=== PATIENT | male | born 1970 | race African-American/Black ===

== ENCOUNTER 2021-02-24 10:35 | Inpatient (IN) | payer OTHER, SELFPAY ==
[~2021-02-24] VITALS: Ht 177.8 cm; Wt 88.9 kg
[2021-02-24 10:35] VITALS: BP_SYST 204
[2021-02-24] MEDS ORDERED: DIPHENHYDRAMINE INJ 50 MG/ML VIAL IVP ONE (11:15)
[2021-02-24] MEDS ORDERED: MORPHINE 2 MG/ML INJ. SYRINGE IVP ONE (11:15)
[2021-02-24 11:53] LABS: INR 1.2 (0.80-1.20); PROTHROMBIN TIME 12.5 SECS (9.5-12.5)
[2021-02-24 11:55] LABS: EOSINOPHILS % (AUTO) 1.5 % (0.0-4.0); HEMATOCRIT 25.4 % (36-54); LYMPHOCYTES # (AUTO) 0.5 K/uL (1.0-5.5); LYMPHOCYTES % (AUTO) 16.9 % (20.5-51.5); MEAN CORPUSCULAR HEMOGLOBIN 31 pg (27-31); MEAN CORPUSCULAR HGB CONC 31 % (32-36); MEAN CORPUSCULAR VOLUME 97 fL (79.0-98.0); MONOCYTES # (AUTO) 0.3 K/uL (0.0-1.0); MONOCYTES % (AUTO) 10.1 % (1.7-9.3); NEUTROPHILS % (AUTO) 70.5 % (40.0-70.0); PLATELET COUNT (AUTO) 123 K/uL (130-430); RED BLOOD CELL COUNT(AUTO) 2.61 MIL/uL (4.2-6.2); RED CELL DISTRIBUTION WIDTH 15.2 % (9.0-15.0); WHITE BLOOD COUNT (AUTO) 2.8 K/uL (4.8-10.8)
[2021-02-24 11:56] LABS: ALANINE AMINOTRANSFERASE 207 U/L (12-78); ALBUMIN 3.3 g/dL (3.4-4.8); AMYLASE 39 U/L (0-100); ASPARTATE AMINOTRANSFERASE 233 U/L (10-37); CALCIUM 8.5 mg/dL (8.4-11.0); CREATININE 2.06 mg/dL (0.55-1.30); LIPASE 8 U/L (73-393); TOTAL BILIRUBIN 0.5 mg/dL (0.0-1.0); UREA NITROGEN, BLOOD 27 mg/dL (8-21)
[2021-02-24 11:58] LABS: BILIRUBIN,URINE NEGATIVE (NEGATIVE); CLARITY/URINE CLEAR (CLEAR); COLOR,URINE YELLOW (YELLOW); GLUCOSE,URINE 3+ (NEGATIVE); KETONES,URINE NEGATIVE (NEGATIVE); LEUKOCYTE ESTERASE ,URINE NEGATIVE (NEGATIVE); NITRITE, URINE NEGATIVE (NEGATIVE); PROTEIN URINE TRACE (NEGATIVE); UROBILINOGEN,URINE 0.2 (0.2-1.0)
[2021-02-24 12:13] LABS: BLOOD, URINE TRACE (NEGATIVE)
[2021-02-24 12:15] LABS: ANION GAP 12 (5-15); CHLORIDE 103 mmol/L (98-107); GFR AFRICAN AMERICAN 44 mL/min (>90); POTASSIUM 4.6 mmol/L (3.5-5.1); SODIUM SERUM 135 mmol/L (136-145)
[2021-02-24 12:23] LABS: GLUCOSE 896 mg/dL (70-99)
[2021-02-24] MEDS ORDERED: MORPHINE 4 MG INJ. 4 MG/ML VIAL IVP ONE (12:30)
[2021-02-24] MEDS ORDERED: cloNIDine HCL 0.1 MG TABLET PO ONE (12:30)
[2021-02-24] MEDS ORDERED: LEVOFLOXACIN IN DEXTROSE 5 % 100 ML IV ONE (12:45)
[2021-02-24 12:48] LABS: RBC,URINE 0-3 /HPF (0-3); WBC,URINE 0-3 /HPF (0-3)
[2021-02-24 12:49] LABS: BACTERIA,URINE RARE /HPF (None Seen); MUCUS,URINE 1+ /LPF (None Seen)
[2021-02-24 12:55] LABS: CKMB RELATIVE INDEX 1.9 (0.0-2.9); CREATINE KINASE MB 7.2 ng/mL (0-3.6)
[2021-02-24 13:18] LABS: C-REACTIVE PROTEIN QUANT < 0.2 mg/dL (0-0.5)
[2021-02-24] MEDS ORDERED: HYDROcodone/ACETAMIN 10-325 MG TAB PO PRN (14:00)
[2021-02-24] MEDS ORDERED: NALOXONE HCL 0.4 MG/ML AMP (NARCAN) IVP PRN ×3 (14:00)
[2021-02-24] MEDS ORDERED: NORMAL SALINE 5 ML DISP.SYRIN IVF SCH (14:00)
[2021-02-24] MEDS ORDERED: ONDANSETRON HCL 4 MG/2 ML VIAL IVP PRN (14:00)
[2021-02-24] MEDS ORDERED: HYDROcodone/ACETAMIN 5-325 MG TAB (NORCO/ VICODIN) PO PRN (14:00)
[2021-02-24] MEDS ORDERED: ACETAMINOPHEN 325 MG TABLET PO PRN ×2 (14:00→15:00)
[2021-02-24] MEDS ORDERED: ISOS120T8 PO (14:05)
[2021-02-24] MEDS ORDERED: PRO40 PO (14:05)
[2021-02-24] MEDS ORDERED: VITD2000 PO (14:05)
[2021-02-24] MEDS ORDERED: METO-442 PO (14:05)
[2021-02-24] MEDS ORDERED: LIPA1CAP23 PO (14:05)
[2021-02-24] MEDS ORDERED: SSNOVOLOG SUBCUT (14:05)
[2021-02-24] MEDS ORDERED: LON10 PO (14:05)
[2021-02-24] MEDS ORDERED: CLOP75TA32 PO (14:05)
[2021-02-24] MEDS ORDERED: FURO-149 PO (14:05)
[2021-02-24] MEDS ORDERED: ASPI-1077 PO (14:05)
[2021-02-24] MEDS ORDERED: LIP40 PO (14:05)
[2021-02-24] MEDS ORDERED: HYDR-4039 PO (14:05)
[2021-02-24] MEDS ORDERED: INSU100V9 SQ (14:05)
[2021-02-24] MEDS ORDERED: SPIR25TA PO (14:05)
[2021-02-24] MEDS: INSULIN REGULAR, HUMAN 100 UNITS/ML, 10 ML VIAL (humuLIN R) SUBCUT PRN ×3 (14:58→21:53)
[2021-02-24] MEDS: MORPHINE 2 MG/ML INJ. SYRINGE IVP PRN ×2 (14:59→21:51)
[2021-02-24] MEDS ORDERED: GLUCOSE (DEXTROSE) ORAL GEL -Adults PO PRN (15:00)
[2021-02-24] MEDS ORDERED: HYDROCHLOROTHIAZIDE 25 MG TABLET (HCTZ) PO ONE (15:00)
[2021-02-24] MEDS ORDERED: FUROSEMIDE 20 MG/2 ML VIAL IVP ONE (15:00)
[2021-02-24] MEDS ORDERED: DEXTROSE 50%-WATER 50 ML DISP.SYRIN IVP PRN (15:00)
[2021-02-24] MEDS ORDERED: D5W 1,000 ML IV PRN (15:00)
[2021-02-24 15:49] VITALS: BP_SYST 200
[2021-02-24] MEDS ORDERED: INSULIN REGULAR, HUMAN 10 UNITS/0.1 ML INJ ONE (16:00)
[2021-02-24 16:22] VITALS: BP_SYST 197
[2021-02-24] MEDS: NORMAL SALINE 5 ML DISP.SYRIN IVF SCH ×2 (16:48→21:09)
[2021-02-24] MEDS: NACL 0.9% 1,000 ML IV SCH ×2 (16:48→18:09)
[2021-02-24] MEDS ORDERED: INSULIN REGULAR, HUMAN 100 UNITS/ML, 10 ML VIAL SUBCUT ONE (17:15)
[2021-02-24] MEDS: cefTRIAXone 1 GM in D5W 50 ML IV SCH (18:00)
[2021-02-24 18:11] LABS: CALCIUM 8.3 mg/dL (8.4-11.0); CREATININE 2.04 mg/dL (0.55-1.30)
[2021-02-24 20:00] VITALS: BP_SYST 208
[2021-02-24] MEDS: cloNIDine HCL 0.1 MG TABLET PO PRN (21:44)
[2021-02-24] MEDS ORDERED: INSULIN GLARGINE 100 UNITS/ML 10 ML VIAL SUBCUT SCH (22:00)
[2021-02-24 22:30] VITALS: BP_SYST 192
[2021-02-24] MEDS ORDERED: LOSARTAN POTASSIUM 50 MG TABLET (COZAAR) PO ONE (22:44)
[2021-02-24] MEDS ORDERED: LABETALOL HCL 100 MG TABLET PO ONE (22:45)
[2021-02-25] VITALS (8 sets, daily range): BP systolic 135–196
[2021-02-25] MEDS ORDERED: amLODIPine BESYLATE 10 MG TABLET PO ONE (00:15)
[2021-02-25] MEDS ORDERED: HYDROmorphone 1 MG/ML INJ. CARTRIDGE IM PRN (01:00)
[2021-02-25] MEDS ORDERED: FLU VACC QS2021-22(6MOS UP)/PF 0.5 ML/SYR SYRINGE I.M. ONE (01:30)
[2021-02-25] MEDS: DIPHENHYDRAMINE INJ 50 MG/ML VIAL IVP PRN ×4 (01:35→22:22)
[2021-02-25] MEDS: HYDROmorphone 1 MG/ML INJ. CARTRIDGE IVP PRN ×4 (01:59→22:21)
[2021-02-25] MEDS: NACL 0.9% 1,000 ML IV SCH (04:07)
[2021-02-25] MEDS: NORMAL SALINE 5 ML DISP.SYRIN IVF SCH ×3 (06:49→21:41)
[2021-02-25] MEDS ORDERED: FUROSEMIDE 20 MG/2 ML VIAL IVP SCH (09:00)
[2021-02-25] MEDS ORDERED: LABETALOL HCL 100 MG TABLET PO SCH (09:00)
[2021-02-25] MEDS ORDERED: HYDROCHLOROTHIAZIDE 25 MG TABLET (HCTZ) PO SCH (09:00)
[2021-02-25 09:03] LABS: BASOPHILS # (AUTO) 0.1 K/uL (0.0-0.2); BASOPHILS % (AUTO) 1.6 % (0.0-2.0); EOSINOPHILS # (AUTO) 0.2 K/uL (0.0-0.4); EOSINOPHILS % (AUTO) 5.3 % (0.0-4.0); HEMATOCRIT 26.8 % (36-54); LYMPHOCYTES # (AUTO) 1.3 K/uL (1.0-5.5); LYMPHOCYTES % (AUTO) 32.4 % (20.5-51.5); MEAN CORPUSCULAR HEMOGLOBIN 31 pg (27-31); MEAN CORPUSCULAR HGB CONC 33 % (32-36); MEAN CORPUSCULAR VOLUME 92 fL (79.0-98.0); MONOCYTES # (AUTO) 0.5 K/uL (0.0-1.0); MONOCYTES % (AUTO) 12.8 % (1.7-9.3); NEUTROPHILS # (AUTO) 1.9 K/uL (1.8-7.7); NEUTROPHILS % (AUTO) 47.9 % (40.0-70.0); PLATELET COUNT (AUTO) 136 K/uL (130-430); RED BLOOD CELL COUNT(AUTO) 2.91 MIL/uL (4.2-6.2)
[2021-02-25 09:19] LABS: ALBUMIN 3.1 g/dL (3.4-4.8); ANION GAP 11 (5-15); CALCIUM 8.3 mg/dL (8.4-11.0); CHLORIDE 109 mmol/L (98-107); CREATININE 1.72 mg/dL (0.55-1.30); GLUCOSE 61 mg/dL (70-99); PHOSPHORUS 3.3 mg/dL (2.7-4.5); POTASSIUM 3.5 mmol/L (3.5-5.1); SODIUM SERUM 141 mmol/L (136-145); TOTAL BILIRUBIN 0.4 mg/dL (0.0-1.0); UREA NITROGEN, BLOOD 23 mg/dL (8-21)
[2021-02-25] MEDS: LEVOFLOXACIN IN DEXTROSE 5 % 100 ML IV SCH (09:20)
[2021-02-25 09:49] LABS: ERYTHROCYTE SEDIMENTATION RATE 15 MM/HR (0-15)
[2021-02-25 10:42] LABS: GFR AFRICAN AMERICAN 55 mL/min (>90)
[2021-02-25 10:43] LABS: ALANINE AMINOTRANSFERASE 144 U/L (12-78); ASPARTATE AMINOTRANSFERASE 78 U/L (10-37); C-REACTIVE PROTEIN QUANT < 0.2 mg/dL (0-0.5)
[2021-02-25] MEDS ORDERED: FUROSEMIDE 40 MG/4 ML VIAL IVP ONE (12:30)
[2021-02-25] MEDS ORDERED: SPIRONOLACTONE 25 MG TABLET (ALDACTONE) PO ONE ×2 (12:30→15:45)
[2021-02-25] MEDS ORDERED: NITROGLYCERIN 1 INCH (GM) OINT. TP ONE (12:30)
[2021-02-25] MEDS: LOSARTAN POTASSIUM 50 MG TABLET (COZAAR) PO SCH ×2 (13:27→22:52)
[2021-02-25] MEDS: LIPASE/PROTEASE/AMYLASE 1 CAP PO SCH ×3 (13:29→17:56)
[2021-02-25] MEDS ORDERED: 0.45% NS 1,000 ML IV ONE (16:30)
[2021-02-25] MEDS ORDERED: MAGNESIUM SULFATE IV ONE (16:30)
[2021-02-25] MEDS ORDERED: POTASSIUM CHLORIDE 60 MEQ in NS 500 ML IV ONE (16:30)
[2021-02-25] MEDS ORDERED: D5W IV ONE (16:30)
[2021-02-25] MEDS: NITROGLYCERIN 1 INCH (GM) OINT. TP SCH (17:56)
[2021-02-25] MEDS: cefTRIAXone 1 GM in D5W 50 ML IV SCH (18:33)
[2021-02-25] MEDS ORDERED: hydrALAZINE HCL 25 MG TABLET PO SCH (21:00)
[2021-02-25] MEDS ORDERED: INSULIN GLARGINE 100 UNITS/ML 10 ML VIAL SUBCUT SCH (21:00)
[2021-02-25] MEDS: CARVEDILOL 6.25 MG TABLET (COREG) PO SCH (21:37)
[2021-02-25] MEDS: INSULIN REGULAR, HUMAN 100 UNITS/ML, 10 ML VIAL (humuLIN R) SUBCUT PRN (22:50)
[2021-02-25] MEDS: FUROSEMIDE 40 MG/4 ML VIAL IVP SCH (22:51)
[2021-02-26] MEDS: NITROGLYCERIN 1 INCH (GM) OINT. TP SCH ×4 (01:31→17:15)
[2021-02-26] MEDS: DIPHENHYDRAMINE INJ 50 MG/ML VIAL IVP PRN ×6 (02:41→23:59)
[2021-02-26] MEDS: HYDROmorphone 1 MG/ML INJ. CARTRIDGE IVP PRN ×7 (02:43→20:03)
[2021-02-26] MEDS: NORMAL SALINE 5 ML DISP.SYRIN IVF SCH ×3 (06:30→22:10)
[2021-02-26 07:53] VITALS: BP_SYST 149
[2021-02-26] MEDS: ASPIRIN 81 MG TAB.CHEW PO SCH ×2 (08:56→11:27)
[2021-02-26] MEDS: LIPASE/PROTEASE/AMYLASE 1 CAP PO SCH ×3 (08:59→18:32)
[2021-02-26] MEDS: CARVEDILOL 6.25 MG TABLET (COREG) PO SCH ×2 (09:00→22:10)
[2021-02-26] MEDS: LOSARTAN POTASSIUM 50 MG TABLET (COZAAR) PO SCH ×2 (09:00→20:01)
[2021-02-26] MEDS: SPIRONOLACTONE 25 MG TABLET (ALDACTONE) PO SCH (09:00)
[2021-02-26] MEDS: LEVOFLOXACIN IN DEXTROSE 5 % 100 ML IV SCH (09:04)
[2021-02-26 11:02] LABS: BASOPHILS # (AUTO) 0.1 K/uL (0.0-0.2); BASOPHILS % (AUTO) 2.3 % (0.0-2.0); EOSINOPHILS # (AUTO) 0.2 K/uL (0.0-0.4); EOSINOPHILS % (AUTO) 5.5 % (0.0-4.0); HEMOGLOBIN 8.8 g/dL (14.0-18.0); LYMPHOCYTES # (AUTO) 0.9 K/uL (1.0-5.5); LYMPHOCYTES % (AUTO) 29.9 % (20.5-51.5); MEAN CORPUSCULAR HEMOGLOBIN 30 pg (27-31); MEAN CORPUSCULAR HGB CONC 34 % (32-36); MEAN CORPUSCULAR VOLUME 90 fL (79.0-98.0); MONOCYTES # (AUTO) 0.4 K/uL (0.0-1.0); MONOCYTES % (AUTO) 13.7 % (1.7-9.3); NEUTROPHILS # (AUTO) 1.5 K/uL (1.8-7.7); NEUTROPHILS % (AUTO) 48.6 % (40.0-70.0); PLATELET COUNT (AUTO) 132 K/uL (130-430); RED BLOOD CELL COUNT(AUTO) 2.89 MIL/uL (4.2-6.2); RED CELL DISTRIBUTION WIDTH 15.2 % (9.0-15.0)
[2021-02-26 11:07] LABS: FERRITIN 129 ng/mL (30-400); FOLATE (FOLIC ACID) >20.0 ng/mL (>3.0); HEPATITIS A AB, IgM Negative (Negative); HEPATITIS B CORE AB, IgM Negative (Negative); HEPATITIS B SURFACE AG Negative (Negative)
[2021-02-26 11:14] LABS: ANION GAP 11 (5-15); CALCIUM 8.1 mg/dL (8.4-11.0); CHLORIDE 109 mmol/L (98-107); CREATININE 1.97 mg/dL (0.55-1.30); GLUCOSE 87 mg/dL (70-99); PHOSPHORUS 4.7 mg/dL (2.7-4.5); POTASSIUM 4.5 mmol/L (3.5-5.1); SODIUM SERUM 141 mmol/L (136-145); THYROID STIMULATING HORMONE 2.33 uIu/mL (0.36-3.74); UREA NITROGEN, BLOOD 27 mg/dL (8-21)
[2021-02-26 11:16] LABS: GFR AFRICAN AMERICAN 47 mL/min (>90)
[2021-02-26] MEDS: ATORVASTATIN 20 MG TABLET PO SCH (11:28)
[2021-02-26] MEDS: hydrALAZINE HCL 25 MG TABLET PO SCH ×2 (11:30→20:02)
[2021-02-26 12:00] VITALS: BP_SYST 165
[2021-02-26 12:02] LABS: ERYTHROCYTE SEDIMENTATION RATE 15 MM/HR (0-15)
[2021-02-26 12:04] LABS: C-REACTIVE PROTEIN QUANT < 0.2 mg/dL (0-0.5)
[2021-02-26] MEDS: FUROSEMIDE 40 MG/4 ML VIAL IVP SCH ×3 (15:24→22:11)
[2021-02-26] MEDS ORDERED: amLODIPine BESYLATE 5 MG TABLET PO ONE (15:30)
[2021-02-26 15:33] VITALS: BP_SYST 174
[2021-02-26] MEDS: amLODIPine BESYLATE 5 MG TABLET PO SCH (15:45)
[2021-02-26 16:00] VITALS: BP_SYST 167
[2021-02-26] MEDS: cefTRIAXone 1 GM in D5W 50 ML IV SCH (16:40)
[2021-02-26] MEDS: NACL 0.9% 1,000 ML IV SCH (18:00)
[2021-02-26 19:54] VITALS: BP_SYST 172
[2021-02-26] MEDS: INSULIN GLARGINE 100 UNITS/ML 10 ML VIAL SUBCUT SCH (21:00)
[2021-02-27] MEDS: HYDROmorphone 1 MG/ML INJ. CARTRIDGE IVP PRN ×6 (00:01→22:18)
[2021-02-27] MEDS: INSULIN REGULAR, HUMAN 100 UNITS/ML, 10 ML VIAL (humuLIN R) SUBCUT PRN ×5 (00:01→21:20)
[2021-02-27] MEDS: NITROGLYCERIN 1 INCH (GM) OINT. TP SCH ×4 (00:07→19:02)
[2021-02-27] MEDS: DIPHENHYDRAMINE INJ 50 MG/ML VIAL IVP PRN ×5 (04:37→22:18)
[2021-02-27] MEDS: FUROSEMIDE 40 MG/4 ML VIAL IVP SCH (06:00)
[2021-02-27] MEDS: NORMAL SALINE 5 ML DISP.SYRIN IVF SCH ×3 (06:18→21:16)
[2021-02-27 08:00] VITALS: BP_SYST 169
[2021-02-27] MEDS ORDERED: hydrALAZINE HCL 25 MG TABLET PO ONE (08:45)
[2021-02-27] MEDS: LEVOFLOXACIN IN DEXTROSE 5 % 100 ML IV SCH (08:54)
[2021-02-27] MEDS: LOSARTAN POTASSIUM 50 MG TABLET (COZAAR) PO SCH ×2 (09:00→21:13)
[2021-02-27] MEDS: amLODIPine BESYLATE 5 MG TABLET PO SCH ×2 (09:00→21:15)
[2021-02-27] MEDS: ATORVASTATIN 20 MG TABLET PO SCH (09:00)
[2021-02-27] MEDS: SPIRONOLACTONE 25 MG TABLET (ALDACTONE) PO SCH (09:02)
[2021-02-27] MEDS: cloNIDine HCL 0.1 MG TABLET PO PRN (09:03)
[2021-02-27] MEDS: LIPASE/PROTEASE/AMYLASE 1 CAP PO SCH ×3 (09:04→19:03)
[2021-02-27] MEDS: NACL 0.9% 1,000 ML IV SCH ×2 (09:05→18:00)
[2021-02-27 10:13] LABS: BASOPHILS % (AUTO) 0.3 % (0.0-2.0); EOSINOPHILS # (AUTO) 0.3 K/uL (0.0-0.4); EOSINOPHILS % (AUTO) 7.3 % (0.0-4.0); HEMATOCRIT 27.8 % (36-54); HEMOGLOBIN 9.4 g/dL (14.0-18.0); LYMPHOCYTES # (AUTO) 1.2 K/uL (1.0-5.5); LYMPHOCYTES % (AUTO) 32.4 % (20.5-51.5); MEAN CORPUSCULAR HEMOGLOBIN 30 pg (27-31); MEAN CORPUSCULAR HGB CONC 34 % (32-36); MEAN CORPUSCULAR VOLUME 90 fL (79.0-98.0); MONOCYTES # (AUTO) 0.4 K/uL (0.0-1.0); MONOCYTES % (AUTO) 11.4 % (1.7-9.3); NEUTROPHILS # (AUTO) 1.9 K/uL (1.8-7.7); NEUTROPHILS % (AUTO) 48.6 % (40.0-70.0); PLATELET COUNT (AUTO) 143 K/uL (130-430); RED BLOOD CELL COUNT(AUTO) 3.09 MIL/uL (4.2-6.2); RED CELL DISTRIBUTION WIDTH 14.4 % (9.0-15.0); WHITE BLOOD COUNT (AUTO) 3.8 K/uL (4.8-10.8)
[2021-02-27 10:31] LABS: ALANINE AMINOTRANSFERASE 156 U/L (12-78); ALBUMIN 3.5 g/dL (3.4-4.8); ANION GAP 8 (5-15); ASPARTATE AMINOTRANSFERASE 129 U/L (10-37); CALCIUM 7.5 mg/dL (8.4-11.0); CHLORIDE 106 mmol/L (98-107); CREATININE 2.09 mg/dL (0.55-1.30); GLUCOSE 177 mg/dL (70-99); PHOSPHORUS 4.1 mg/dL (2.7-4.5); SODIUM SERUM 138 mmol/L (136-145); TOTAL BILIRUBIN 0.5 mg/dL (0.0-1.0); UREA NITROGEN, BLOOD 27 mg/dL (8-21)
[2021-02-27 10:33] LABS: GFR AFRICAN AMERICAN 43 mL/min (>90)
[2021-02-27] MEDS: CARVEDILOL 12.5 MG TABLET (COREG) PO SCH ×2 (10:49→21:14)
[2021-02-27 11:16] LABS: ERYTHROCYTE SEDIMENTATION RATE 14 MM/HR (0-15)
[2021-02-27 11:21] LABS: C-REACTIVE PROTEIN QUANT < 0.2 mg/dL (0-0.5)
[2021-02-27 12:51] VITALS: BP_SYST 160
[2021-02-27] MEDS ORDERED: LABETALOL HCL 100 MG TABLET PO ONE (15:15)
[2021-02-27] MEDS: cefTRIAXone 1 GM in D5W 50 ML IV SCH (16:36)
[2021-02-27 16:56] VITALS: BP_SYST 162
[2021-02-27 21:11] VITALS: BP_SYST 161
[2021-02-27] MEDS: FUROSEMIDE 40 MG TABLET PO SCH (21:14)
[2021-02-27] MEDS: LABETALOL HCL 100 MG TABLET PO SCH (21:15)
[2021-02-27] MEDS: INSULIN GLARGINE 100 UNITS/ML 10 ML VIAL SUBCUT SCH (21:19)
[2021-02-27] MEDS ORDERED: hydrALAZINE HCL 25 MG TABLET PO SCH (22:00)
[2021-02-27 22:13] VITALS: BP_SYST 162
[2021-02-28] VITALS (7 sets, daily range): BP systolic 138–160
[2021-02-28] MEDS: NITROGLYCERIN 1 INCH (GM) OINT. TP SCH ×4 (00:35→17:43)
[2021-02-28] MEDS: DIPHENHYDRAMINE INJ 50 MG/ML VIAL IVP PRN ×4 (03:48→18:34)
[2021-02-28] MEDS: HYDROmorphone 1 MG/ML INJ. CARTRIDGE IVP PRN ×4 (03:49→18:36)
[2021-02-28] MEDS: NORMAL SALINE 5 ML DISP.SYRIN IVF SCH ×3 (06:24→21:59)
[2021-02-28] MEDS: LORazepam 2 MG/ML VIAL IVP PRN ×2 (06:40→16:42)
[2021-02-28] MEDS: LIPASE/PROTEASE/AMYLASE 1 CAP PO SCH ×3 (09:35→17:40)
[2021-02-28] MEDS: LEVOFLOXACIN IN DEXTROSE 5 % 100 ML IV SCH (09:36)
[2021-02-28] MEDS: LABETALOL HCL 100 MG TABLET PO SCH ×3 (09:36→21:52)
[2021-02-28] MEDS: ATORVASTATIN 20 MG TABLET PO SCH (09:37)
[2021-02-28] MEDS: LOSARTAN POTASSIUM 50 MG TABLET (COZAAR) PO SCH ×2 (09:37→21:54)
[2021-02-28] MEDS: FUROSEMIDE 40 MG TABLET PO SCH ×2 (09:38→21:52)
[2021-02-28] MEDS: amLODIPine BESYLATE 5 MG TABLET PO SCH ×2 (09:38→21:53)
[2021-02-28] MEDS: ASPIRIN 81 MG TAB.CHEW PO SCH (09:38)
[2021-02-28] MEDS: SPIRONOLACTONE 25 MG TABLET (ALDACTONE) PO SCH (09:39)
[2021-02-28 10:04] LABS: ALANINE AMINOTRANSFERASE 106 U/L (12-78); ALBUMIN 3.2 g/dL (3.4-4.8); ANION GAP 8 (5-15); ASPARTATE AMINOTRANSFERASE 62 U/L (10-37); CALCIUM 7.2 mg/dL (8.4-11.0); CHLORIDE 106 mmol/L (98-107); CREATININE 2.12 mg/dL (0.55-1.30); GLUCOSE 155 mg/dL (70-99); PHOSPHORUS 4.2 mg/dL (2.7-4.5); POTASSIUM 4.2 mmol/L (3.5-5.1); SODIUM SERUM 137 mmol/L (136-145); TOTAL BILIRUBIN 0.3 mg/dL (0.0-1.0); UREA NITROGEN, BLOOD 32 mg/dL (8-21)
[2021-02-28 10:07] LABS: C-REACTIVE PROTEIN QUANT < 0.2 mg/dL (0-0.5); GFR AFRICAN AMERICAN 43 mL/min (>90)
[2021-02-28 11:02] LABS: EOSINOPHILS # (AUTO) 0.2 K/uL (0.0-0.4); EOSINOPHILS % (AUTO) 7.2 % (0.0-4.0); HEMATOCRIT 24.8 % (36-54); HEMOGLOBIN 8.3 g/dL (14.0-18.0); LYMPHOCYTES # (AUTO) 1.3 K/uL (1.0-5.5); LYMPHOCYTES % (AUTO) 37.5 % (20.5-51.5); MEAN CORPUSCULAR HEMOGLOBIN 31 pg (27-31); MEAN CORPUSCULAR HGB CONC 34 % (32-36); MEAN CORPUSCULAR VOLUME 91 fL (79.0-98.0); MONOCYTES # (AUTO) 0.4 K/uL (0.0-1.0); MONOCYTES % (AUTO) 12.7 % (1.7-9.3); NEUTROPHILS # (AUTO) 1.4 K/uL (1.8-7.7); PLATELET COUNT (AUTO) 115 K/uL (130-430); RED BLOOD CELL COUNT(AUTO) 2.73 MIL/uL (4.2-6.2); RED CELL DISTRIBUTION WIDTH 14.5 % (9.0-15.0); WHITE BLOOD COUNT (AUTO) 3.4 K/uL (4.8-10.8)
[2021-02-28 11:07] LABS: BASOPHILS % (AUTO) 0.5 % (0.0-2.0); NEUTROPHILS % (AUTO) 42.1 % (40.0-70.0)
[2021-02-28] MEDS: INSULIN REGULAR, HUMAN 100 UNITS/ML, 10 ML VIAL (humuLIN R) SUBCUT PRN ×2 (12:11→16:31)
[2021-02-28 13:15] LABS: ERYTHROCYTE SEDIMENTATION RATE 11 MM/HR (0-15)
[2021-02-28] MEDS ORDERED: COMMUNICATION ORDER XX ONE (16:15)
[2021-02-28] MEDS: cefTRIAXone 1 GM in D5W 50 ML IV SCH (16:24)
[2021-02-28] MEDS ORDERED: MAGNESIUM SULFATE IV ONE (17:00)
[2021-02-28] MEDS ORDERED: NACL 0.9% IV ONE (17:00)
[2021-02-28] MEDS: NACL 0.9% 1,000 ML IV SCH (17:45)
[2021-02-28] MEDS: INSULIN GLARGINE 100 UNITS/ML 10 ML VIAL SUBCUT SCH (21:58)
[2021-03-01] VITALS: BP_SYST 150
[2021-03-01] MEDS: NITROGLYCERIN 1 INCH (GM) OINT. TP SCH ×4 (00:01→18:17)
[2021-03-01] MEDS: DIPHENHYDRAMINE INJ 50 MG/ML VIAL IVP PRN ×4 (00:01→18:16)
[2021-03-01] MEDS: HYDROmorphone 1 MG/ML INJ. CARTRIDGE IVP PRN ×4 (00:02→18:25)
[2021-03-01] MEDS: NORMAL SALINE 5 ML DISP.SYRIN IVF SCH ×2 (06:45→13:31)
[2021-03-01 08:00] VITALS: BP_SYST 148
[2021-03-01] MEDS: LIPASE/PROTEASE/AMYLASE 1 CAP PO SCH ×3 (08:37→18:16)
[2021-03-01] MEDS: amLODIPine BESYLATE 5 MG TABLET PO SCH (08:40)
[2021-03-01] MEDS: ATORVASTATIN 20 MG TABLET PO SCH (08:40)
[2021-03-01] MEDS: ASPIRIN 81 MG TAB.CHEW PO SCH (08:41)
[2021-03-01] MEDS: LOSARTAN POTASSIUM 50 MG TABLET (COZAAR) PO SCH (08:41)
[2021-03-01] MEDS: LABETALOL HCL 100 MG TABLET PO SCH ×2 (08:41→15:28)
[2021-03-01] MEDS: FUROSEMIDE 40 MG TABLET PO SCH (08:42)
[2021-03-01] MEDS: LEVOFLOXACIN IN DEXTROSE 5 % 100 ML IV SCH (08:42)
[2021-03-01 10:25] LABS: BASOPHILS % (AUTO) 0.9 % (0.0-2.0); EOSINOPHILS # (AUTO) 0.2 K/uL (0.0-0.4); EOSINOPHILS % (AUTO) 4.5 % (0.0-4.0); HEMATOCRIT 23.6 % (36-54); HEMOGLOBIN 7.9 g/dL (14.0-18.0); LYMPHOCYTES # (AUTO) 0.8 K/uL (1.0-5.5); LYMPHOCYTES % (AUTO) 19.2 % (20.5-51.5); MEAN CORPUSCULAR HEMOGLOBIN 30 pg (27-31); MEAN CORPUSCULAR HGB CONC 34 % (32-36); MEAN CORPUSCULAR VOLUME 91 fL (79.0-98.0); MONOCYTES # (AUTO) 0.4 K/uL (0.0-1.0); MONOCYTES % (AUTO) 10.3 % (1.7-9.3); NEUTROPHILS # (AUTO) 2.7 K/uL (1.8-7.7); NEUTROPHILS % (AUTO) 65.1 % (40.0-70.0); PLATELET COUNT (AUTO) 107 K/uL (130-430); RED BLOOD CELL COUNT(AUTO) 2.61 MIL/uL (4.2-6.2); RED CELL DISTRIBUTION WIDTH 14.5 % (9.0-15.0); WHITE BLOOD COUNT (AUTO) 4.2 K/uL (4.8-10.8)
[2021-03-01 10:44] LABS: ALANINE AMINOTRANSFERASE 80 U/L (12-78); ANION GAP 9 (5-15); ASPARTATE AMINOTRANSFERASE 41 U/L (10-37); CALCIUM 7.2 mg/dL (8.4-11.0); CHLORIDE 107 mmol/L (98-107); CREATININE 2.11 mg/dL (0.55-1.30); GLUCOSE 177 mg/dL (70-99); PHOSPHORUS 4.7 mg/dL (2.7-4.5); POTASSIUM 4.5 mmol/L (3.5-5.1); SODIUM SERUM 137 mmol/L (136-145); TOTAL BILIRUBIN 0.2 mg/dL (0.0-1.0); UREA NITROGEN, BLOOD 34 mg/dL (8-21)
[2021-03-01 10:46] LABS: GFR AFRICAN AMERICAN 43 mL/min (>90)
[2021-03-01 10:47] LABS: C-REACTIVE PROTEIN QUANT < 0.2 mg/dL (0-0.5)
[2021-03-01 11:27] LABS: ERYTHROCYTE SEDIMENTATION RATE 7 MM/HR (0-15)
[2021-03-01] MEDS: INSULIN REGULAR, HUMAN 100 UNITS/ML, 10 ML VIAL (humuLIN R) SUBCUT PRN ×2 (11:44→17:37)
[2021-03-01 12:00] VITALS: BP_SYST 145
[2021-03-01] MEDS ORDERED: AMLO5TAB4 PO (13:38)
[2021-03-01] MEDS ORDERED: LABE100T5 PO (13:38)
[2021-03-01] MEDS ORDERED: FURO-149 PO (13:38)
[2021-03-01] MEDS ORDERED: LOSA50TA3 PO (13:38)
[2021-03-01] MEDS ORDERED: INSU100V9 SQ (13:38)
[2021-03-01] MEDS ORDERED: HYDR-3919 PO (13:38)
[2021-03-01 15:39] VITALS: BP_SYST 146
[2021-03-01 16:00] VITALS: BP_SYST 146
[2021-03-01] MEDS: cefTRIAXone 1 GM in D5W 50 ML IV SCH (17:28)
[2021-03-01] MEDS: NACL 0.9% 1,000 ML IV SCH (18:18)
== END 2021-03-01 20:00 | disposition home or self-care (01) | DRG 720 ==
LOC: SED 10:35 → STU 12:44
PROVIDERS: ADMIT Preventive Medicine Preventive Medicine/Occupational Environmental Medicine; ATTEND Preventive Medicine Preventive Medicine/Occupational Environmental Medicine
DX: A41.9 Sepsis, unspecified organism (principal); J96.21 Acute and chronic respiratory failure with hypoxia; I50.23 Acute on chronic systolic (congestive) heart failure; D61.818 Other pancytopenia; E11.10 Type 2 diabetes mellitus with ketoacidosis without coma; E43 Unspecified severe protein-calorie malnutrition; N17.9 Acute kidney failure, unspecified; D69.6 Thrombocytopenia, unspecified; E83.39 Other disorders of phosphorus metabolism; D63.8 Anemia in other chronic diseases classified elsewhere; J18.9 Pneumonia, unspecified organism; I13.0 Hypertensive heart and chronic kidney disease with heart failure and stage 1 through stage 4 chronic kidney disease, or unspecified chronic kidney disease; E83.51 Hypocalcemia; E11.65 Type 2 diabetes mellitus with hyperglycemia; E78.5 Hyperlipidemia, unspecified; E83.52 Hypercalcemia; E88.09 Other disorders of plasma-protein metabolism, not elsewhere classified; F17.200 Nicotine dependence, unspecified, uncomplicated; K86.1 Other chronic pancreatitis; E87.1 Hypo-osmolality and hyponatremia; G89.29 Other chronic pain; I16.0 Hypertensive urgency; R74.01 Elevation of levels of liver transaminase levels; E11.21 Type 2 diabetes mellitus with diabetic nephropathy; Z20.822 Contact with and (suspected) exposure to COVID-19; I25.10 Atherosclerotic heart disease of native coronary artery without angina pectoris; I31.3 Pericardial effusion (noninflammatory); I25.5 Ischemic cardiomyopathy; K86.81 Exocrine pancreatic insufficiency; K76.89 Other specified diseases of liver; N18.9 Chronic kidney disease, unspecified; E11.22 Type 2 diabetes mellitus with diabetic chronic kidney disease; I25.2 Old myocardial infarction; Z79.82 Long term (current) use of aspirin; Z79.899 Other long term (current) drug therapy; Z79.4 Long term (current) use of insulin; Z86.73 Personal history of transient ischemic attack (TIA), and cerebral infarction without residual deficits; Z86.74 Personal history of sudden cardiac arrest; Z86.79 Personal history of other diseases of the circulatory system; Z95.810 Presence of automatic (implantable) cardiac defibrillator; Z98.61 Coronary angioplasty status; Z68.28 Body mass index [BMI] 28.0-28.9, adult
CPT/HCPCS: 36415; 71045; 76376; 76700-TC; 76770; 80048; 80053; 80074; 81000; 82009; 82150; 82306; 82550; 82553; 82607; 82728; 82746; 82962; 83036; 83605; 83690; 83735; 83880; 84100; 84443; 84484; 85025; 85044; 85379; 85610-TC; 85651-TC; 85730-TC; 86038; 86140; 87040-TC; 87081; 93005; 93306; 93970; 93971; 96374; 96375; 96376; 99285; G0378; J0696; J1170; J1200; J1815; J1940; J1956; J2060; J2270; J3475; J3480; J7030; J7040; J7060; U0003

== ENCOUNTER 2021-05-28 22:11 | Inpatient (IN) | payer OTHER ==
[~2021-05-28] VITALS: Ht 172.7 cm; Wt 81.6 kg
[~2021-05-28 22:11] MED LIST: AMLO5TAB4 PO; ASPI-1077 PO; CELE200C PO; CLOP75TA32 PO; INSU100V9 SQ; LABE100T5 PO; LIP40 PO; LIPA1CAP23 PO; LOSA50TA3 PO; OSCD500 PO; PRO40 PO; SSNOVOLOG SUBCUT; VITD2000 PO
[2021-05-28 22:34] VITALS: BP_SYST 142
--- NOTE | 2021-05-28 23:10 | NUR ---
RECEIVED PT A&O X4, VERBAL, AMBULATORY, WITH C/O ABD'L PAIN, NO SOB/ DISTRESS, PT STATED THAT HE HAD ABD'L PAIN X 6DAYS, N/V X 2DAYS, ABD'L PAIN IS ABOUT 10/10.
--- NOTE | 2021-05-28 23:14 | NUR ---
Placed in room 02 . Placed on playground monitor, blood pressure machine and pulse oximeter. To gown for exam. Side rails up.
--- NOTE | 2021-05-28 23:46 | NUR ---
URINE SPECIMEN SENT TO THE LAB
[2021-05-29] VITALS (13 sets, daily range): BP systolic 145–173
--- NOTE | 2021-05-29 00:26 | NUR ---
ER Dr. Loya at bedside examining patient.
[2021-05-29 00:29] LABS: EOSINOPHILS # (AUTO) 0.1 K/uL (0.0-0.4); EOSINOPHILS % (AUTO) 1.9 % (0.0-4.0); HEMATOCRIT 27.4 % (36-54); HEMOGLOBIN 9.2 g/dL (14.0-18.0); LYMPHOCYTES # (AUTO) 0.9 K/uL (1.0-5.5); LYMPHOCYTES % (AUTO) 20.8 % (20.5-51.5); MEAN CORPUSCULAR HEMOGLOBIN 31 pg (27-31); MEAN CORPUSCULAR HGB CONC 34 % (32-36); MEAN CORPUSCULAR VOLUME 91 fL (79.0-98.0); MONOCYTES # (AUTO) 0.5 K/uL (0.0-1.0); MONOCYTES % (AUTO) 12.5 % (1.7-9.3); NEUTROPHILS # (AUTO) 2.6 K/uL (1.8-7.7); NEUTROPHILS % (AUTO) 63.8 % (40.0-70.0); PLATELET COUNT (AUTO) 150 K/uL (130-430); RED BLOOD CELL COUNT(AUTO) 3.02 MIL/uL (4.2-6.2); RED CELL DISTRIBUTION WIDTH 15.2 % (9.0-15.0); WHITE BLOOD COUNT (AUTO) 4.1 K/uL (4.8-10.8)
[2021-05-29] MEDS ORDERED: MORPHINE 4 MG INJ. 4 MG/ML VIAL IVP ONE (00:30)
[2021-05-29] MEDS ORDERED: DIPHENHYDRAMINE INJ 50 MG/ML VIAL IVP ONE (00:30)
[2021-05-29] MEDS ORDERED: ONDANSETRON HCL 4 MG/2 ML VIAL IVP ONE (00:30)
[2021-05-29 00:43] LABS: CALCIUM 7.3 mg/dL (8.4-11.0); CREATININE 1.82 mg/dL (0.55-1.30); POTASSIUM 3.6 mmol/L (3.5-5.1)
[2021-05-29 00:57] LABS: ALBUMIN 2.6 g/dL (3.4-4.8); TOTAL BILIRUBIN 0.6 mg/dL (0.0-1.0)
[2021-05-29] MEDS ORDERED: NACL 0.9% 1,000 ML IV ONE (01:00)
[2021-05-29 01:09] LABS: BILIRUBIN,URINE NEGATIVE (NEGATIVE); BLOOD, URINE 1+ (NEGATIVE); CLARITY/URINE CLEAR (CLEAR); COLOR,URINE YELLOW (YELLOW); GLUCOSE,URINE 3+ (NEGATIVE); KETONES,URINE NEGATIVE (NEGATIVE); LEUKOCYTE ESTERASE ,URINE NEGATIVE (NEGATIVE); NITRITE, URINE NEGATIVE (NEGATIVE); PROTEIN URINE 2+ (NEGATIVE); UROBILINOGEN,URINE 0.2 (0.2-1.0)
[2021-05-29 01:51] LABS: ACETONE, SERUM NEGATIVE (NEGATIVE)
[2021-05-29 02:13] LABS: BACTERIA,URINE RARE /HPF (None Seen); MUCUS,URINE None Seen /LPF (None Seen); WBC,URINE 0-3 /HPF (0-3)
[2021-05-29] MEDS ORDERED: INSULIN REGULAR, HUMAN 100 UNITS in NS 99 ML IV ONE ×2 (02:45)
[2021-05-29] MEDS ORDERED: POTASSIUM CHLORIDE 20 MEQ in NACL 0.9% 1,000 ML IV ONE (02:45)
[2021-05-29] MEDS ORDERED: POTASSIUM CHLORIDE 20 MEQ in NACL 0.9% 1,000 ML IV SCH (03:15)
[2021-05-29] MEDS ORDERED: INSULIN REGULAR, HUMAN 100 UNITS in NS 99 ML IV PRN ×2 (03:30)
[2021-05-29] MEDS ORDERED: DEXTROSE 50% JECT 50 ML DISP.SYRIN IVP PRN (03:30)
[2021-05-29] MEDS ORDERED: INSULIN REGULAR, HUMAN 10 UNITS/0.1 ML INJ ONE (03:58)
[2021-05-29] MEDS ORDERED: MORPHINE 4 MG INJ. 4 MG/ML VIAL IVP PRN (04:00)
[2021-05-29] MEDS ORDERED: KCL 20 mEq in NS 1000 mL 1,000 ML IV ONE (04:06)
--- NOTE | 2021-05-29 04:28 | NUR ---
Insulin drip initiated per MD orders. Per Dr. Loya order, insulin drip to be infusing at a constant rate of 10 units/hr, do not titrate insulin drip. Accuchecks to be done q 1hr.
[2021-05-29 04:53] LABS: ALANINE AMINOTRANSFERASE 59 U/L (12-78); ALBUMIN 2.5 g/dL (3.4-4.8); ANION GAP 10 (5-15); ASPARTATE AMINOTRANSFERASE 41 U/L (10-37); CALCIUM 7.1 mg/dL (8.4-11.0); CHLORIDE 99 mmol/L (98-107); CREATININE 1.84 mg/dL (0.55-1.30); PHOSPHORUS 3.7 mg/dL (2.7-4.5); POTASSIUM 3.6 mmol/L (3.5-5.1); SODIUM SERUM 130 mmol/L (136-145); TOTAL BILIRUBIN 0.4 mg/dL (0.0-1.0); UREA NITROGEN, BLOOD 25 mg/dL (8-21)
[2021-05-29 04:57] LABS: GFR AFRICAN AMERICAN 50 mL/min (>90)
[2021-05-29 04:58] LABS: GLUCOSE 780 mg/dL (70-99)
--- NOTE | 2021-05-29 04:58 | NUR ---
Critical lab reporting - Glucose from blood draw is 780. notified
[2021-05-29 05:04] LABS: ACETONE, SERUM NEGATIVE (NEGATIVE)
[2021-05-29] MEDS ORDERED: NALOXONE HCL 0.4 MG/ML AMP (NARCAN) IVP PRN (05:30)
[2021-05-29] MEDS: HYDROmorphone 1 MG/ML INJ. CARTRIDGE IVP PRN ×5 (05:41→23:02)
--- NOTE | 2021-05-29 07:35 | NUR ---
REPORT RECEIVED FROM AM ICU NURSE. PT AWAKE, ALERT, ORIENTED X3. REPORTS PAIN 5/10 AT THIS TIME TO EPIGASTRIC AREA. PT RECEIVED DILAUDID FO CHRONIC PAIN DURING AUTHORIZATION MANAGER. NOTED PT ON IV DRIP REGULAR INSULIN VIA PUMP AT 10 UNITS/HR, BLOOD SUGAR CHECKED-511MG/DL.. DR RUIZ PAGED AND NOTIFIED OF FINDINGS, REPORTS TO CONT DRIP AT 10 UNITS/HR. WILL CONT TO MONITOR CLOSELY.
[2021-05-29 09:21] LABS: BASOPHILS % (AUTO) 1.1 % (0.0-2.0); EOSINOPHILS # (AUTO) 0.2 K/uL (0.0-0.4); EOSINOPHILS % (AUTO) 4.7 % (0.0-4.0); HEMATOCRIT 25.7 % (36-54); HEMOGLOBIN 8.7 g/dL (14.0-18.0); LYMPHOCYTES # (AUTO) 0.9 K/uL (1.0-5.5); LYMPHOCYTES % (AUTO) 23.2 % (20.5-51.5); MEAN CORPUSCULAR HEMOGLOBIN 30 pg (27-31); MEAN CORPUSCULAR HGB CONC 34 % (32-36); MEAN CORPUSCULAR VOLUME 90 fL (79.0-98.0); MONOCYTES # (AUTO) 0.5 K/uL (0.0-1.0); MONOCYTES % (AUTO) 12.3 % (1.7-9.3); NEUTROPHILS # (AUTO) 2.2 K/uL (1.8-7.7); NEUTROPHILS % (AUTO) 58.7 % (40.0-70.0); PLATELET COUNT (AUTO) 131 K/uL (130-430); RED BLOOD CELL COUNT(AUTO) 2.86 MIL/uL (4.2-6.2); RED CELL DISTRIBUTION WIDTH 15.1 % (9.0-15.0); WHITE BLOOD COUNT (AUTO) 3.8 K/uL (4.8-10.8)
--- NOTE | 2021-05-29 09:28 | NUR ---
AL -SAYED AT BEDSIDE, UPDATED ON STATUS, LABS, AND VITALS. PER DR LEWIS, STATES TO DECREASE INSULIN DRIP TO 4 UNITS/HR ONCE BS IS DOWN TO 250MG/DL.
[2021-05-29 09:29] LABS: CALCIUM 7.3 mg/dL (8.4-11.0); CREATININE 1.71 mg/dL (0.55-1.30); POTASSIUM 3.3 mmol/L (3.5-5.1)
--- NOTE | 2021-05-29 09:35 | NUR ---
Patient will be admitted to care of DR RUIZ. Admitted to unit. Will go to room . Belongings list completed. Complete and up to date summary report printed. SBAR report to be given at bedside with opportunity for questions.
--- NOTE | 2021-05-29 10:00 | NUR ---
Opening Received report from NEWSPAPER DELIVERY DRIVER using SBAR format. Pt resting comfortably, no signs of immediate distress. Bed locked in lowest position. Pt ambulated from [facility] to ICU bed, steady gait. All safety checks have been completed.
[2021-05-29] MEDS ORDERED: DIPHENHYDRAMINE HCL 12.5 MG/5 ML UDC PO PRN (10:30)
[2021-05-29] MEDS ORDERED: DIPHENHYDRAMINE HCL 25 MG CAPSULE ONE (10:39)
[2021-05-29] MEDS ORDERED: LOSARTAN POTASSIUM 50 MG TABLET (COZAAR) PO ONE (11:15)
[2021-05-29] MEDS ORDERED: ATORVASTATIN 20 MG TABLET PO ONE (11:15)
[2021-05-29] MEDS ORDERED: LABETALOL HCL 100 MG TABLET PO ONE (11:15)
[2021-05-29] MEDS ORDERED: CHOLECALCIFEROL (VITAMIN D3) 2,000 UNIT TABLET PO ONE (11:15)
[2021-05-29] MEDS ORDERED: POTASSIUM CHLORIDE 20 MEQ TAB.PRT.SR PO ONE (11:15)
[2021-05-29] MEDS ORDERED: CLOPIDOGREL BISULFATE 75 MG TABLET PO ONE (11:15)
[2021-05-29] MEDS ORDERED: PANTOPRAZOLE SODIUM 40 MG TAB PO ONE (11:15)
[2021-05-29] MEDS ORDERED: CALCIUM CARBONATE/VITAMIN D3 1 TAB TABLET PO ONE (11:15)
[2021-05-29] MEDS ORDERED: ASPIRIN 81 MG TAB.CHEW PO ONE (11:15)
[2021-05-29] MEDS ORDERED: amLODIPine BESYLATE 5 MG TABLET PO ONE (11:15)
--- NOTE | 2021-05-29 12:20 | NUR ---
Most recent blood sugar is 98. Dr Lynn was notified. Insulin pump to be turned off from this point forward. Dr. Lynn is okay with pt downgrade to tele when primary clears him.
--- NOTE | 2021-05-29 12:45 | NUR ---
Pt refused lab draw after bar assistant's first attempt.
[2021-05-29] MEDS: POTASSIUM CHLORIDE 20 MEQ in NACL 0.9% 1,000 ML IV SCH (15:04)
[2021-05-29] MEDS: LABETALOL HCL 100 MG TABLET PO SCH ×2 (15:06→21:02)
[2021-05-29] MEDS: CELECOXIB 200 MG CAPSULE PO SCH (20:55)
[2021-05-29] MEDS: LOSARTAN POTASSIUM 50 MG TABLET (COZAAR) PO SCH (20:57)
[2021-05-29] MEDS: amLODIPine BESYLATE 5 MG TABLET PO SCH (21:01)
[2021-05-29] MEDS: INSULIN GLARGINE 100 UNITS/ML 10 ML VIAL SUBCUT SCH (21:03)
[2021-05-29] MEDS: INSULIN LISPRO SLIDING SCALE 100 UNITS/ML VIAL (humaLOG) SUBCUT PRN (21:05)
--- NOTE | 2021-05-29 22:31 | NUR ---
ALL CARES DONE MEDS GIVEN BSL-248 COVERAGE GIVEN, VSS,AFEBRILE. 2144 REFUSED BLOOD DRAW. 2149 T/F TO MST REPORT GIVEN TO JODI IZQUIERDO
[2021-05-30] VITALS: BP_SYST 136
[2021-05-30] MEDS: POTASSIUM CHLORIDE 20 MEQ in NACL 0.9% 1,000 ML IV SCH ×3 (00:08→20:27)
--- NOTE | 2021-05-30 03:00 | NUR ---
Pain Complaining of abdominal pain no nausea no vomiting , pain medication given tolerating po well , safety /fall precaution initiated.
[2021-05-30] MEDS: HYDROmorphone 1 MG/ML INJ. CARTRIDGE IVP PRN ×5 (03:05→20:32)
[2021-05-30] MEDS: INSULIN LISPRO SLIDING SCALE 100 UNITS/ML VIAL (humaLOG) SUBCUT PRN ×2 (06:16→12:07)
[2021-05-30 07:40] LABS: CALCIUM 7.3 mg/dL (8.4-11.0); CREATININE 1.93 mg/dL (0.55-1.30); POTASSIUM 4.2 mmol/L (3.5-5.1)
--- NOTE | 2021-05-30 07:50 | NUR ---
OPENING NOTE Patient awake and sitting at bedside eating breakfast, AxO x4. States that his pain has dropped to a 4 since his last pain medication but is slowly increasing again. No signs of respiratory distress on room air. IV site is clean, dry, intact and patent running prescribed fluids. Denies any nausea at this time. Safety checks made and call light left within reach.
[2021-05-30 08:00] VITALS: BP_SYST 139
[2021-05-30 08:01] LABS: EOSINOPHILS % (AUTO) 7.7 % (0.0-4.0); HEMATOCRIT 26.1 % (36-54); HEMOGLOBIN 8.8 g/dL (14.0-18.0); LYMPHOCYTES % (AUTO) 29.3 % (20.5-51.5); MEAN CORPUSCULAR HEMOGLOBIN 30 pg (27-31); MEAN CORPUSCULAR HGB CONC 34 % (32-36); MEAN CORPUSCULAR VOLUME 90 fL (79.0-98.0); MONOCYTES # (AUTO) 0.3 K/uL (0.0-1.0); MONOCYTES % (AUTO) 8.3 % (1.7-9.3); PLATELET COUNT (AUTO) 150 K/uL (130-430); RED CELL DISTRIBUTION WIDTH 14.9 % (9.0-15.0); WHITE BLOOD COUNT (AUTO) 3.3 K/uL (4.8-10.8)
[2021-05-30 08:32] LABS: TOTAL IRON BIND. CAPACITY 226 ug/dL (250-450)
[2021-05-30] MEDS: CELECOXIB 200 MG CAPSULE PO SCH ×2 (08:56→20:25)
[2021-05-30] MEDS: PANTOPRAZOLE SODIUM 40 MG TAB PO SCH (08:56)
[2021-05-30] MEDS: LABETALOL HCL 100 MG TABLET PO SCH ×3 (08:57→20:27)
[2021-05-30] MEDS: ATORVASTATIN 20 MG TABLET PO SCH (08:57)
[2021-05-30] MEDS: amLODIPine BESYLATE 5 MG TABLET PO SCH ×2 (08:58→20:28)
[2021-05-30] MEDS: CLOPIDOGREL BISULFATE 75 MG TABLET PO SCH (08:58)
[2021-05-30] MEDS: CHOLECALCIFEROL (VITAMIN D3) 2,000 UNIT TABLET PO SCH (08:58)
[2021-05-30] MEDS: ASPIRIN 81 MG TAB.CHEW PO SCH (08:59)
[2021-05-30] MEDS: CALCIUM CARBONATE/VITAMIN D3 1 TAB TABLET PO SCH (08:59)
[2021-05-30] MEDS: LOSARTAN POTASSIUM 50 MG TABLET (COZAAR) PO SCH ×2 (08:59→20:28)
[2021-05-30] MEDS: INSULIN GLARGINE 100 UNITS/ML 10 ML VIAL SUBCUT SCH ×2 (09:05→20:47)
[2021-05-30 09:16] LABS: NEUTROPHILS % (AUTO) 54.7 % (40.0-70.0)
[2021-05-30 09:17] LABS: EOSINOPHILS # (AUTO) 0.2 K/uL (0.0-0.4); NEUTROPHILS # (AUTO) 1.8 K/uL (1.8-7.7)
--- NOTE | 2021-05-30 10:50 | NUR ---
PAIN Patient complaining of abdominal pain, states that it is at an 8. Denies nausea at this time. Informed patient that he would be able to receive pain medication at 1109, patient verbalized understanding. Communicated with RN to administer IVP medication at 1109.
[2021-05-30 12:09] LABS: POTASSIUM 4.6 mmol/L (3.5-5.1); SODIUM SERUM 130 mmol/L (136-145)
[2021-05-30 12:10] LABS: ANION GAP 10 (5-15); CALCIUM 7.1 mg/dL (8.4-11.0); CHLORIDE 109 mmol/L (98-107); GLUCOSE 223 mg/dL (70-99)
[2021-05-30 12:11] LABS: UREA NITROGEN, BLOOD 28 mg/dL (8-21)
[2021-05-30 12:28] VITALS: BP_SYST 149
--- NOTE | 2021-05-30 15:00 | NUR ---
ROUNDS Patient complaining of abdominal pain. Tender to the touch. No nausea or vomiting. States that pain is 8/10.
[2021-05-30 16:00] VITALS: BP_SYST 140
[2021-05-30 17:15] LABS: CALCIUM 7.2 mg/dL (8.4-11.0); CREATININE 1.95 mg/dL (0.55-1.30); POTASSIUM 4.7 mmol/L (3.5-5.1)
--- NOTE | 2021-05-30 18:49 | NUR ---
CLOSING NOTE Patient in bed resting, AxO x4. No sign of respiratory distress on room air, patient states that pain is manageable at this time (/). Pain is in the abdomen, denies nausea or vomiting. IV site is clean, dry, intact, and patent. All needs met, safety checks made and call light within reach.
[2021-05-30 20:00] VITALS: BP_SYST 132
--- NOTE | 2021-05-30 20:30 | NUR ---
Received pt up in bed in stable cond. Verbally responsive and able to make needs known. Breathing adequately on RA. No signs of acute distress. IVF running as ordered and tolerating well. IV site to L jugular remains patent and free from signs of infiltration. Denies any pain to site. Call light within reach.
[2021-05-30 21:19] LABS: CALCIUM 7.2 mg/dL (8.4-11.0); CREATININE 1.88 mg/dL (0.55-1.30); POTASSIUM 4.7 mmol/L (3.5-5.1)
[2021-05-31] MEDS: HYDROmorphone 1 MG/ML INJ. CARTRIDGE IVP PRN ×6 (00:41→21:33)
[2021-05-31 00:50] VITALS: BP_SYST 137
[2021-05-31 04:00] VITALS: BP_SYST 134
[2021-05-31] MEDS: POTASSIUM CHLORIDE 20 MEQ in NACL 0.9% 1,000 ML IV SCH ×2 (05:00→14:47)
--- NOTE | 2021-05-31 06:10 | NUR ---
Accu check performed and received BS level of 45. Pt is alert/orientated x4 at this time. Appears without any signs of hypoglycemia. Skin warm/dry. States he feels "fine" and continued using his cell phone. Offered OJ but pt refused and requested for apple juice instead. Snack/drink provided immediately and remained at bedside for any changes.
--- NOTE | 2021-05-31 06:48 | NUR ---
Accu check reassessed and obtained BS reading of 83 at this time. Pt states he feels "fine" still and denies any symptoms related to hypoglycemia. Endorsed to AM to monitor for any changes.
[2021-05-31 07:06] LABS: FOLATE (FOLIC ACID) 15.3 ng/mL (>3.0)
--- NOTE | 2021-05-31 07:50 | NUR ---
Initial Note Patient awake, alert, and oriented x 4. Reports 6/10 pain; tolerable for patient at this time. No distress. No signs or symptoms of hypoglycemia. Call light in reach and bed in lowest position. Will continue to monitor.
[2021-05-31 08:12] VITALS: BP_SYST 142
[2021-05-31] MEDS: CELECOXIB 200 MG CAPSULE PO SCH ×2 (08:36→22:09)
[2021-05-31] MEDS: CALCIUM CARBONATE/VITAMIN D3 1 TAB TABLET PO SCH (08:36)
[2021-05-31] MEDS: LABETALOL HCL 100 MG TABLET PO SCH ×3 (08:36→22:11)
[2021-05-31] MEDS: CLOPIDOGREL BISULFATE 75 MG TABLET PO SCH (08:37)
[2021-05-31] MEDS: LOSARTAN POTASSIUM 50 MG TABLET (COZAAR) PO SCH ×2 (08:37→22:11)
[2021-05-31] MEDS: CHOLECALCIFEROL (VITAMIN D3) 2,000 UNIT TABLET PO SCH (08:37)
[2021-05-31] MEDS: ATORVASTATIN 20 MG TABLET PO SCH (08:37)
[2021-05-31] MEDS: ASPIRIN 81 MG TAB.CHEW PO SCH (08:37)
[2021-05-31] MEDS: PANTOPRAZOLE SODIUM 40 MG TAB PO SCH (08:38)
[2021-05-31] MEDS: amLODIPine BESYLATE 5 MG TABLET PO SCH ×2 (08:38→22:10)
[2021-05-31] MEDS: INSULIN GLARGINE 100 UNITS/ML 10 ML VIAL SUBCUT SCH ×2 (09:00→22:20)
[2021-05-31 12:00] VITALS: BP_SYST 138
--- NOTE | 2021-05-31 13:47 | NUR ---
Notes Patient resting in bed, pain is controlled at 5/10 pain per patient. No distress. Patient no longer refusing blood draw - notified lab. Call light in reach and bed in lowest position. Encouraged to call.
[2021-05-31 14:35] LABS: CALCIUM 7.2 mg/dL (8.4-11.0); CREATININE 1.81 mg/dL (0.55-1.30); POTASSIUM 4.6 mmol/L (3.5-5.1)
[2021-05-31 16:00] VITALS: BP_SYST 126
--- NOTE | 2021-05-31 17:42 | NUR ---
Dietitian Recommendations * [facility]-75 gm diet * Low-glycemic snacks in-between meals BID HEATHER, LUNA Please refer to Nutrition Assessment for details. Addendum: 05/31/21 at [address] Amended: Links added.
--- NOTE | 2021-05-31 19:15 | NUR ---
OPENING NOTES Patient resting in bed - no s/s pain or distress noted. Respirations even and unlabored - head of bed elevated. IV site patent - no s/s redness, infection, or infiltration. Bed locked and in lowest position. Call light within reach.
--- NOTE | 2021-05-31 19:20 | NUR ---
Closing Note Patient resting in bed, pain is controlled. No distress. Safety precautions in place throughout shift. Endorsed to night nurse.
[2021-05-31 20:28] LABS: CALCIUM 7.1 mg/dL (8.4-11.0); CREATININE 1.75 mg/dL (0.55-1.30); POTASSIUM 4.8 mmol/L (3.5-5.1)
--- NOTE | 2021-05-31 21:15 | NUR ---
IV FELL OUT AFTER ADMINISTRATION OF DILAUDID 1MG IV REJ FELL OUT + INFILTRATED. WILL TRY INSERTION OF IV.
[2021-05-31] MEDS: INSULIN LISPRO SLIDING SCALE 100 UNITS/ML VIAL (humaLOG) SUBCUT PRN (22:17)
[2021-06-01] VITALS: BP_SYST 129
--- NOTE | 2021-06-01 00:26 | NUR ---
PAGED DR. RUIZ FOR CENTRAL LINE RN THEA TRIED TWICE FOR IV, CHARGE NURSE KIMBERLEY TRIED AT LEAST THREE TIMES, NOT SUCCESSFUL. PAGED DR RUIZ FOR APPROVAL OF CENTRAL LINE PLACEMENT. DR RUIZ STATES PATIENT GOING HOME TOMORROW. NO NEED FOR CENTRAL LINE. STATES DILAUDID CAN BE GIVEN INTRAMUSCULARLY.
[2021-06-01] MEDS: POTASSIUM CHLORIDE 20 MEQ in NACL 0.9% 1,000 ML IV SCH ×3 (03:00→23:12)
--- NOTE | 2021-06-01 05:37 | NUR ---
OF THIS TIME 5 REGISTERED NURSES ATTEMPTED INSERTION OF IV. Addendum: 06/01/21 at 0538 by Ronald Valdez RN EACH NURSE HAD TRIED THROUGHOUT SHIFT - NOT ALL AT ONCE
--- NOTE | 2021-06-01 05:40 | NUR ---
IV INSERTED R WRIST 22G
[2021-06-01] MEDS: HYDROmorphone 1 MG/ML INJ. CARTRIDGE IVP PRN ×5 (05:44→22:41)
--- NOTE | 2021-06-01 07:30 | NUR ---
Initial Note Patient awake, alert, and oriented x 4. Blood sugar 71, will hold Lantus and notify MD. Reports pain controlled at this time, no distress. Call light and bedside table in reach, encouraged to call.
[2021-06-01] MEDS: PANTOPRAZOLE SODIUM 40 MG TAB PO SCH (08:07)
[2021-06-01] MEDS: ASPIRIN 81 MG TAB.CHEW PO SCH (08:07)
[2021-06-01] MEDS: CALCIUM CARBONATE/VITAMIN D3 1 TAB TABLET PO SCH (08:07)
[2021-06-01] MEDS: ATORVASTATIN 20 MG TABLET PO SCH (08:07)
[2021-06-01] MEDS: CELECOXIB 200 MG CAPSULE PO SCH ×2 (08:09→20:12)
[2021-06-01] MEDS: CLOPIDOGREL BISULFATE 75 MG TABLET PO SCH (08:09)
[2021-06-01] MEDS: INSULIN GLARGINE 100 UNITS/ML 10 ML VIAL SUBCUT SCH ×2 (08:10→20:21)
[2021-06-01] MEDS: CHOLECALCIFEROL (VITAMIN D3) 2,000 UNIT TABLET PO SCH (08:10)
[2021-06-01] MEDS: LABETALOL HCL 100 MG TABLET PO SCH ×3 (08:13→20:14)
[2021-06-01] MEDS: LOSARTAN POTASSIUM 50 MG TABLET (COZAAR) PO SCH ×2 (08:14→20:14)
[2021-06-01] MEDS: amLODIPine BESYLATE 5 MG TABLET PO SCH ×2 (08:14→20:13)
[2021-06-01 08:24] VITALS: BP_SYST 172
--- NOTE | 2021-06-01 10:41 | NUR ---
Patient refusing IVF Noted pitting edema 1+ to right arm. Patient refusing fluids due to right arm swelling and reported diagnosis of CHF. IV site assessed, no signs of infiltration or phlebitis. Patient denies pain at site. Will continue to monitor and educate regarding fluid intake and risk for dehydration. Addendum: 06/01/21 at 1857 by Heidy Naylor RN MD quiroga
--- NOTE | 2021-06-01 12:00 | NUR ---
Notes Patient resting in bed. Denies pain, no distress. Bed locked in lowest position. Call light in reach, encouraged to call.
[2021-06-01 12:07] VITALS: BP_SYST 150
--- NOTE | 2021-06-01 16:18 | NUR ---
Notes Patient asleep, wakes with light verbal stimuli. Pain is controlled, no distress. Safety precautions in place. Encouraged to call as needed.
[2021-06-01 16:26] VITALS: BP_SYST 174
[2021-06-01] MEDS ORDERED: cloNIDine HCL 0.1 MG TABLET ONE (16:39)
[2021-06-01] MEDS: INSULIN LISPRO SLIDING SCALE 100 UNITS/ML VIAL (humaLOG) SUBCUT PRN ×2 (16:40→20:24)
[2021-06-01] MEDS ORDERED: cloNIDine HCL 0.1 MG TABLET PO PRN (16:45)
--- NOTE | 2021-06-01 18:54 | NUR ---
Closing Note Patient resting in bed, pain is controlled with Dilaudid 1 mg Q 4 H. No distress. No signs or symptoms of hypo- or hyper-glycemia. Venous doppler ordered for right upper extremity edema. Safety precautions in place throughout shift. Bed locked in lowest position. Will endorse to night nurse.
--- NOTE | 2021-06-01 19:38 | NUR ---
Spoke w/ Dr Armenta informed him of venous doppler results, ordered 10mg eliquis BID starting now
[2021-06-01 20:00] VITALS: BP_SYST 145
[2021-06-01] MEDS: APIXABAN 2.5 MG TABLET PO SCH (20:12)
[2021-06-02] VITALS: BP_SYST 136
--- NOTE | 2021-06-02 04:23 | NUR ---
Third call for Dr. Maria s/w Kylah.
--- NOTE | 2021-06-02 04:25 | NUR ---
Spoke w/ Dr Armenta pt requesting IV dilaudid, but IV site is in the R arm where the blood clot is. Ordered to give IM and ordered midline placement
[2021-06-02] MEDS ORDERED: HYDROmorphone 1 MG/ML INJ. CARTRIDGE IM PRN (04:30)
[2021-06-02 08:00] LABS: BASOPHILS % (AUTO) 1.1 % (0.0-2.0); EOSINOPHILS # (AUTO) 0.3 K/uL (0.0-0.4); EOSINOPHILS % (AUTO) 7.1 % (0.0-4.0); HEMOGLOBIN 8.5 g/dL (14.0-18.0); LYMPHOCYTES # (AUTO) 0.9 K/uL (1.0-5.5); LYMPHOCYTES % (AUTO) 23.3 % (20.5-51.5); MEAN CORPUSCULAR HEMOGLOBIN 30 pg (27-31); MEAN CORPUSCULAR HGB CONC 33 % (32-36); MEAN CORPUSCULAR VOLUME 92 fL (79.0-98.0); MONOCYTES # (AUTO) 0.5 K/uL (0.0-1.0); MONOCYTES % (AUTO) 12.1 % (1.7-9.3); NEUTROPHILS # (AUTO) 2.3 K/uL (1.8-7.7); NEUTROPHILS % (AUTO) 56.4 % (40.0-70.0); PLATELET COUNT (AUTO) 143 K/uL (130-430); RED BLOOD CELL COUNT(AUTO) 2.83 MIL/uL (4.2-6.2); RED CELL DISTRIBUTION WIDTH 15.3 % (9.0-15.0); WHITE BLOOD COUNT (AUTO) 4.1 K/uL (4.8-10.8)
[2021-06-02 08:04] VITALS: BP_SYST 171
[2021-06-02 08:31] LABS: ALBUMIN 2.6 g/dL (3.4-4.8); CALCIUM 7.6 mg/dL (8.4-11.0); CREATININE 1.67 mg/dL (0.55-1.30); POTASSIUM 4.4 mmol/L (3.5-5.1); TOTAL BILIRUBIN 0.3 mg/dL (0.0-1.0)
[2021-06-02] MEDS: CELECOXIB 200 MG CAPSULE PO SCH ×2 (08:43→21:25)
[2021-06-02] MEDS: ASPIRIN 81 MG TAB.CHEW PO SCH (08:43)
[2021-06-02] MEDS: CHOLECALCIFEROL (VITAMIN D3) 2,000 UNIT TABLET PO SCH (08:44)
[2021-06-02] MEDS: ATORVASTATIN 20 MG TABLET PO SCH (08:44)
[2021-06-02] MEDS: CALCIUM CARBONATE/VITAMIN D3 1 TAB TABLET PO SCH (08:44)
[2021-06-02] MEDS: PANTOPRAZOLE SODIUM 40 MG TAB PO SCH (08:44)
[2021-06-02] MEDS: CLOPIDOGREL BISULFATE 75 MG TABLET PO SCH (08:44)
[2021-06-02] MEDS: amLODIPine BESYLATE 5 MG TABLET PO SCH ×2 (08:45→21:24)
[2021-06-02] MEDS: LOSARTAN POTASSIUM 50 MG TABLET (COZAAR) PO SCH ×2 (08:46→21:24)
[2021-06-02] MEDS: LABETALOL HCL 100 MG TABLET PO SCH ×3 (08:46→21:25)
[2021-06-02] MEDS: APIXABAN 2.5 MG TABLET PO SCH ×2 (08:52→21:26)
[2021-06-02] MEDS: INSULIN GLARGINE 100 UNITS/ML 10 ML VIAL SUBCUT SCH ×2 (08:59→22:46)
[2021-06-02] MEDS: POTASSIUM CHLORIDE 20 MEQ in NACL 0.9% 1,000 ML IV SCH ×2 (08:59→21:35)
[2021-06-02] MEDS: INSULIN LISPRO SLIDING SCALE 100 UNITS/ML VIAL (humaLOG) SUBCUT PRN ×2 (12:19→22:44)
[2021-06-02 12:56] VITALS: BP_SYST 159
--- NOTE | 2021-06-02 15:07 | NUR ---
dr cabrera sayed said pt is okay to go home on his stand-point and pt can go home with the insuling he will order this time.
[2021-06-02 16:57] VITALS: BP_SYST 155
[2021-06-02] MEDS ORDERED: INSULIN Lispro 100 UNITS/ML VIAL (humaLOG) SUBCUT SCH (17:00)
[2021-06-02] MEDS: INSULIN Lispro 100 UNITS/ML VIAL (humaLOG) SUBCUT SCH (17:37)
[2021-06-02] MEDS: HYDROmorphone 1 MG/ML INJ. CARTRIDGE IVP PRN ×2 (17:38→21:43)
[2021-06-02 21:21] VITALS: BP_SYST 176
[2021-06-03] VITALS: BP_SYST 155
[2021-06-03] MEDS: HYDROmorphone 1 MG/ML INJ. CARTRIDGE IVP PRN ×4 (01:37→14:02)
[2021-06-03] MEDS: POTASSIUM CHLORIDE 20 MEQ in NACL 0.9% 1,000 ML IV SCH ×2 (05:52→15:36)
--- NOTE | 2021-06-03 06:15 | NUR ---
BLOOD SUGAR WAS 50. PATIENT WAS A/OX4, ASYMPTOMATIC FOR HYPOGLYCEMIA, SKIN WAS DRY, NO DIAPHORESIS NOTED. GIVEN 240CC OF APPLE JUICE. PATIENT DRANK WITH NO S/S OF DYSPHAGIA. WILL RECHECK BLOOD SUGAR.
[2021-06-03] MEDS: INSULIN Lispro 100 UNITS/ML VIAL (humaLOG) SUBCUT SCH (07:00)
--- NOTE | 2021-06-03 07:12 | NUR ---
PATIENT WAS PICKED UP BY A STAFF FOR VQ SCAN. PATIENT WAS A/O X4 IN NO ACUTE DISTRESS. VERBALLY RESPONSIVE.
--- NOTE | 2021-06-03 07:27 | NUR ---
ENDOCRINE MD DR SWENSON WAS CALLED, RE: SUGAR OF 48.
--- NOTE | 2021-06-03 07:30 | NUR ---
JOSH SILVA-SAYED AND NOTIFIED ABOUT LOW BLOOD SUGAR LEVEL OF 48. MD ORDERED TO HOLD LANTUS FOR 2100 AND THE HUMALOG 3U UNITS EACH MEAL. ORDERED CARRIED OUT AND ENDORSED TO THE DAYSHIFT RN. PATIENT WAS STILL CT DEPARTMENT FOR THE VQ SCAN PROCEDURE.
--- NOTE | 2021-06-03 07:42 | NUR ---
PATIENT CAME BACK FROM THE VQ SCAN, A/O X4 WITH NO ACUTE DISTRESS.
--- NOTE | 2021-06-03 08:00 | NUR ---
Initial Note Patient awake, alert, and oriented x 4. Pain is controlled, no distress. Hypoglycemic episode per night club manager RN, no signs or symptoms of hypoglycemia noted. Call light and bedside table placed within reach, encouraged to call.
--- NOTE | 2021-06-03 08:06 | NUR ---
RECHECKED BLOOD SUGAR LEVEL AND WAS 48. PATIENT WAS A/O X4, ASYMPTOMATIC FOR HYPOGLYCEMIA. GIVEN 240 OF APPLE JUICE, 2 GRAMS OF CRACKERS, AND A PUDDING PER PATIENT'S REQUEST. WILL RECHECKED BLOOD SUGAR AND CONTINUE TO MONITOR.
[2021-06-03 08:53] VITALS: BP_SYST 186
[2021-06-03] MEDS: INSULIN GLARGINE 100 UNITS/ML 10 ML VIAL SUBCUT SCH (09:00)
[2021-06-03] MEDS: CALCIUM CARBONATE/VITAMIN D3 1 TAB TABLET PO SCH (09:01)
[2021-06-03] MEDS: amLODIPine BESYLATE 5 MG TABLET PO SCH (09:03)
[2021-06-03] MEDS: LOSARTAN POTASSIUM 50 MG TABLET (COZAAR) PO SCH (09:03)
[2021-06-03] MEDS: CLOPIDOGREL BISULFATE 75 MG TABLET PO SCH (09:04)
[2021-06-03] MEDS: CELECOXIB 200 MG CAPSULE PO SCH (09:04)
[2021-06-03] MEDS: ATORVASTATIN 20 MG TABLET PO SCH (09:04)
[2021-06-03] MEDS: CHOLECALCIFEROL (VITAMIN D3) 2,000 UNIT TABLET PO SCH (09:04)
[2021-06-03] MEDS: PANTOPRAZOLE SODIUM 40 MG TAB PO SCH (09:04)
[2021-06-03] MEDS: ASPIRIN 81 MG TAB.CHEW PO SCH (09:04)
[2021-06-03] MEDS: LABETALOL HCL 100 MG TABLET PO SCH ×2 (09:05→14:02)
[2021-06-03] MEDS: APIXABAN 2.5 MG TABLET PO SCH (09:11)
[2021-06-03 11:20] VITALS: BP_SYST 158
[2021-06-03] MEDS ORDERED: INSULIN LISPRO SLIDING SCALE 100 UNITS/ML VIAL (humaLOG) SUBCUT PRN (12:30)
[2021-06-03 12:32] VITALS: BP_SYST 158
[2021-06-03 15:04] VITALS: BP_SYST 150
[2021-06-03 16:54] VITALS: BP_SYST 184
--- NOTE | 2021-06-03 17:15 | NUR ---
D/C Patient Patient given medication reconciliation form and D/C instructions. Exit Care provided. Patient verbalized understanding. MD discussed with patient the results and treatment provided. Ambulatory with steady gait for discharge to home. Patient in stable condition, ID band removed. IV catheter removed, intact and dressing applied, no active bleeding. Rx of Eliquis given. Patient educated on pain management and monitoring of blood sugar. All belongings sent with patient.
== END 2021-06-03 17:15 | disposition home or self-care (01) | DRG 638 ==
LOC: SED 22:11 → SIC 05-29 03:12 → STU 05-29 22:34 → SMU 06-01 17:27
PROVIDERS: ADMIT Family Medicine; ATTEND Family Medicine
PROC: 05HY33Z Insertion of Infusion Device into Upper Vein, Percutaneous Approach (ICD-10-PCS; principal; 2021-06-02)
DX: E11.10 Type 2 diabetes mellitus with ketoacidosis without coma (principal); K86.1 Other chronic pancreatitis; N17.9 Acute kidney failure, unspecified; I82.B11 Acute embolism and thrombosis of right subclavian vein; I13.0 Hypertensive heart and chronic kidney disease with heart failure and stage 1 through stage 4 chronic kidney disease, or unspecified chronic kidney disease; E11.22 Type 2 diabetes mellitus with diabetic chronic kidney disease; D64.9 Anemia, unspecified; Z20.822 Contact with and (suspected) exposure to COVID-19; E78.00 Pure hypercholesterolemia, unspecified; I50.9 Heart failure, unspecified; E11.00 Type 2 diabetes mellitus with hyperosmolarity without nonketotic hyperglycemic-hyperosmolar coma (NKHHC); F17.290 Nicotine dependence, other tobacco product, uncomplicated; G89.29 Other chronic pain; I25.10 Atherosclerotic heart disease of native coronary artery without angina pectoris; E86.0 Dehydration; N18.9 Chronic kidney disease, unspecified; Z79.4 Long term (current) use of insulin; Z86.73 Personal history of transient ischemic attack (TIA), and cerebral infarction without residual deficits; Z95.5 Presence of coronary angioplasty implant and graft; Z88.8 Allergy status to other drugs, medicaments and biological substances; Z79.899 Other long term (current) drug therapy; I25.2 Old myocardial infarction
CPT/HCPCS: 36415; 36600; 76376; 78579; 78580-TC; 80048; 80053; 81000; 82009; 82150; 82607; 82728; 82746; 82803-TC; 82962; 83540; 83550; 83690; 83735; 83880; 83930; 84100; 84484; 85025; 93005; 93971; 96365; 96366; 96375; 99291; A9539; A9540; G0378; J1170; J1200; J1815; J2270; J2405; J3480; J7030; Q0163

== ENCOUNTER 2021-06-27 14:02 | Emergency (ER) | payer OTHER, SELFPAY ==
[~2021-06-27] VITALS: Ht 177.8 cm; Wt 95.3 kg
[2021-06-27 14:10] VITALS: BP_SYST 187
[2021-06-27] MEDS ORDERED: NACL 0.9% 1,000 ML IV ONE (15:00)
[2021-06-27] MEDS ORDERED: FAMOTIDINE PF 20 MG/2 ML VIAL IVP ONE (15:45)
[2021-06-27 15:49] LABS: BILIRUBIN,URINE NEGATIVE (NEGATIVE); CLARITY/URINE CLEAR (CLEAR); COLOR,URINE YELLOW (YELLOW); GLUCOSE,URINE 3+ (NEGATIVE); KETONES,URINE NEGATIVE (NEGATIVE); LEUKOCYTE ESTERASE ,URINE NEGATIVE (NEGATIVE); NITRITE, URINE NEGATIVE (NEGATIVE); PROTEIN URINE 2+ (NEGATIVE); UROBILINOGEN,URINE 0.2 (0.2-1.0)
[2021-06-27 15:50] LABS: BLOOD, URINE TRACE (NEGATIVE)
[2021-06-27 16:06] LABS: BASOPHILS # (AUTO) 0.1 K/uL (0.0-0.2); BASOPHILS % (AUTO) 1.2 % (0.0-2.0); EOSINOPHILS # (AUTO) 0.1 K/uL (0.0-0.4); EOSINOPHILS % (AUTO) 1.4 % (0.0-4.0); HEMOGLOBIN 9.3 g/dL (14.0-18.0); LYMPHOCYTES # (AUTO) 0.6 K/uL (1.0-5.5); LYMPHOCYTES % (AUTO) 13.1 % (20.5-51.5); MEAN CORPUSCULAR HEMOGLOBIN 30 pg (27-31); MEAN CORPUSCULAR HGB CONC 31 % (32-36); MEAN CORPUSCULAR VOLUME 98 fL (79.0-98.0); MONOCYTES # (AUTO) 0.4 K/uL (0.0-1.0); MONOCYTES % (AUTO) 9.9 % (1.7-9.3); NEUTROPHILS # (AUTO) 3.2 K/uL (1.8-7.7); NEUTROPHILS % (AUTO) 74.4 % (40.0-70.0); PLATELET COUNT (AUTO) 174 K/uL (130-430); RED BLOOD CELL COUNT(AUTO) 3.06 MIL/uL (4.2-6.2); RED CELL DISTRIBUTION WIDTH 15.6 % (9.0-15.0); WHITE BLOOD COUNT (AUTO) 4.3 K/uL (4.8-10.8)
[2021-06-27] MEDS ORDERED: INSULIN REGULAR, HUMAN 10 UNITS/0.1 ML INJ SUBCUT ONE (17:00)
[2021-06-27 17:02] LABS: ANION GAP 11 (5-15); CHLORIDE 99 mmol/L (98-107); POTASSIUM 4.5 mmol/L (3.5-5.1); SODIUM SERUM 128 mmol/L (136-145)
[2021-06-27 17:03] LABS: CALCIUM 7.6 mg/dL (8.4-11.0); CREATININE 2.25 mg/dL (0.55-1.30); GFR AFRICAN AMERICAN 40 mL/min (>90); GLUCOSE 912 mg/dL (70-99); TOTAL BILIRUBIN 0.4 mg/dL (0.0-1.0); UREA NITROGEN, BLOOD 34 mg/dL (8-21)
[2021-06-27 17:04] LABS: ALANINE AMINOTRANSFERASE 67 U/L (12-78); ALBUMIN 2.7 g/dL (3.4-4.8); ASPARTATE AMINOTRANSFERASE 51 U/L (10-37)
[2021-06-27 17:09] LABS: ACETONE, SERUM NEGATIVE (NEGATIVE)
[2021-06-27 17:19] LABS: BACTERIA,URINE FEW /HPF (None Seen); WBC,URINE 0-3 /HPF (0-3)
[2021-06-27 17:21] LABS: MUCUS,URINE None Seen /LPF (None Seen)
[2021-06-27] MEDS ORDERED: NACL 0.9% 1,000 ML IV SCH (18:15)
[2021-06-27 19:00] LABS: INR 1.1 (0.80-1.20); PROTHROMBIN TIME 11.4 SECS (9.5-12.5)
[2021-06-27] MEDS ORDERED: MILK OF MAGNESIA 30 ML UDC PO ONE (20:00)
[2021-06-27] MEDS ORDERED: ONDANSETRON 4 MG ODT TAB PO PRN ×2 (20:15→20:30)
[2021-06-27] MEDS ORDERED: DIPHENHYDRAMINE HCL 50 MG CAPSULE PO PRN (20:30)
[2021-06-27] MEDS ORDERED: KETOROLAC TROMETHAMINE 30 MG VIAL IM PRN (21:00)
[2021-06-27 21:15] VITALS: BP_SYST 177
[2021-06-28] MEDS ORDERED: KETOROLAC TROMETHAMINE 30 MG VIAL IM SCH
== END 2021-06-27 21:17 | disposition admitted as inpatient to this hospital (09) ==
LOC: SED 14:02 → UNDOADMIN 18:15 → STU 18:15 → UNDODISIN 21:17
DX: E11.65 Type 2 diabetes mellitus with hyperglycemia (principal); R10.13 Epigastric pain; R53.1 Weakness; I10 Essential (primary) hypertension; Z88.5 Allergy status to narcotic agent; Z88.8 Allergy status to other drugs, medicaments and biological substances; Z79.4 Long term (current) use of insulin; Z79.899 Other long term (current) drug therapy; Z20.822 Contact with and (suspected) exposure to COVID-19
CPT/HCPCS: 36415; 71045; 80053; 81000; 82009; 82962; 85025; 85610; 85730; 87426; 99291; J1815; Q0162; G0378